=== PATIENT | female | born 1965 | race Caucasian/White ===

== ENCOUNTER → 2020-03-05 14:10 | Outpatient (CLI) | payer OTHER, SELFPAY | PROVIDERS: Visit Provider Physician Assistant | DX: N30.01 Acute cystitis with hematuria (principal) | CPT/HCPCS: 87077; 87086; 87147; 87186 ==

== ENCOUNTER 2020-04-30 22:29 | Emergency (ER) | payer OTHER, MEDICAID, SELFPAY ==
[2020-04-30 22:40] VITALS: BP 140/79; PULSE 107; RESP 17; TEMP 37.1; O2SAT 95; BMI 23.6
[2020-04-30 23:03] LABS: RBC Urine 0-1/HPF (0-5/HPF); WBC Urine 10-30/HPF (0-5/HPF)
[2020-04-30 23:04] LABS: Bacteria Urine Moderate (10-30); Culture Indicated Urine Specimen Cultured; Squamous Epithelial Cell Urine 0-1 /HPF (0-5/HPF)
--- NOTE | 2020-05-01 00:09 | ED.FEMALEGU ---
HPI - Female Genitourinary General Chief complaint: Urogenital-Female Stated complaint: Severe UTI Time Seen by Provider: 04/30/20 23:40 Source: patient Mode of arrival: Ambulatory Limitations: no limitations History of Present Illness HPI Narrative: Otherwise healthy 54-year-old woman who presents with dysuria for 12 hours growing more intense and now beginning to notice mild hematuria. No fevers, no flank pain, no belly pain, slightly decreased appetite and general malaise. She does note that she has recently established a new relationship and her partner lives out of town. This is her 2nd UTI in about 6 weeks corresponding with weekends spent with her new partner. She describes no vaginal discharge or odor. Related Data Previous Rx's Medication Instructions Recorded valacyclovir 500 mg tablet 500 mg PO BID 3 Days #6 tab 03/05/20 sulfamethoxazole-trimethoprim 1 tab PO BID #10 tab 05/01/20 Allergies Allergy/AdvReac Type Severity Reaction Status Date / Time No Known Drug Allergies Allergy Verified 03/05/20 14:09 Review of Systems Review of Systems Narrative: Pertinent positive and negative findings as per HPI Remainder of review of systems is otherwise unremarkable for Constitutional: Fevers, chills, weakness ENT: No sore throat, neck pain, ear pain CV: Chest pain, palpitations, dyspnea on exertion Respiratory: Cough, wheeze, dyspnea GI: Nausea, vomiting, diarrhea, change in bowel habits, black or bloody stools Patient History Medical History UTI (urinary tract infection) (Acute) alcohol intake frequency: 0-2 drinks per day Substance Use Type: does not use Exam Narrative Exam Narrative: General: Alert appropriate in no acute distress Respiratory: Able to speak in full sentences, no obvious respiratory distress Skin: No obvious rashes, warm and dry Abdomen: No suprapubic pain, no flank tenderness Neurologic: Grossly intact no obvious asymmetries or abnormalities Psych, appropriate insight and affect, cooperative Initial Vital Signs Initial Vital Signs: Vital Signs Temperature 98.7 F 04/30/20 22:40 Pulse Rate 107 H 04/30/20 22:40 Respiratory Rate 17 04/30/20 22:40 Blood Pressure 140/79 04/30/20 22:40 Pulse Oximetry 95 04/30/20 22:40 Course Orders Ordered: ED Orders 04/30/20 22:45 Urine Culture Stat Urine Microscopic Stat Discontinued Medications Trimethoprim/Sulfamethoxazole (Bactrim Ds) 1 tab PO NOW ONE Stop: 05/01/20 00:16 Last Admin: 05/01/20 00:41 Dose: 1 tab Documented by: FATUMA Vital Signs Vital signs: Vital Signs - 8 hr 04/30/20 22:40 05/01/20 00:39 Temperature 98.7 F 98.2 F Pulse Rate 107 H 92 H Respiratory Rate 17 18 Blood Pressure 140/79 Blood Pressure [Left Arm] 123/67 Pulse Oximetry 95 98 MDM - Female Genitourinary Medical Records Attestation: I reviewed the patient's medical records. Lab Data Attestation: I reviewed the patient's lab results. Lab results narrative: Urine Culture Final 03/07/20 Organism 1 Staphylococcus saprophyticus Springer Count >100,000 CFU/ml Sapro comment: Routine testing of Staphylococcus saprophyticus is NOT advised; infections respond to concentrations achieved in urine of antimicrobial agents commonly used to treat acute, uncomplicated urinary tract infections (eg, nitrofurantoin, trimethoprim/sulfamethoxazole, or fluoroquinolone). Labs: Lab Results 04/30/20 Range/Units 22:45 Urine RBC 0-1/hpf (0-5/HPF) Urine WBC 10-30/hpf H (0-5/HPF) Ur Squamous Epith Cells 0-1 /hpf (0-5/HPF) Urine Bacteria Moderate (10-30) H (None) Ur Culture Indicated? Specimen cultured Urine Dip Bedside Urine Glucose Negative Bedside Urine Bilirubin - Negative Bedside Urine Ketone - Negative Urine Specific Welcome 1.010 Bedside Urine Occult Blood +++ Bedside Urine pH 6.0 Bedside Urine Protein +/- 15 Bedside Urine Urobilinogen - Negative Bedside Urine Nitrite + Positive Bedside Urine Leukocytes +++ [address] [facility] Narrative Medical decision making narrative: 54-year-old woman with 12 hours of increasing dysuria hematuria. She no general malaise by the end of that day and a slight decrease in appetite but does not report fevers flank pain or other constitutional symptoms. She does note that she does have a new partner who was recently in town. Apparently he lives out of town and her most recent bladder infection in February was also associated with increased sexual activity. In February her urine showed staphylococci saprophyticus. Urine today is consistent with a repeat bladder infection. Will treat with 5 days of Septra twice a day. If she continues to have bladder infections after visits with her new partner suggested that she discuss prophylactic treatment with her primary care physician. She is safe for home discharge Discharge Plan Departure Patient Disposition: Home Clinical Impression: UTI (urinary tract infection) Qualifiers: Urinary tract infection type: acute cystitis Hematuria presence: with hematuria Qualified Code(s): N30.01 - Acute cystitis with hematuria Discharge Date/Time: 05/01/20 00:46 Instructions: DI for Urinary Tract Infection (UTI) Activity Restrictions/Additional Instructions: Thank you for coming in today. Based on the bacteria that grew with a bladder infection that you had in February, I am going to recommend that you take Bactrim twice a day for the next 5 days. 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 If you do continue to have recurrent bladder infections based on periodic sexual activity, to talk to your primary care physician about prophylactic options to avoid developing full bladder infection. If you notice fevers, flank pain, increasing abdominal pain, worsening symptoms overall, please return to the emergency room and I am happy to re-evaluate Prescriptions: New sulfamethoxazole-trimethoprim 800-160 mg tablet 1 tab PO BID Qty: 10 RF: 0 No Action valacyclovir [Valtrex] 500 mg tablet 500 mg PO BID 3 Days Qty: 6 RF: 1 Referrals: Debora Snyder ARNP [Primary Care Provider] -
[2020-05-01 00:39] VITALS: BP 123/67; PULSE 92; RESP 18; TEMP 36.8; O2SAT 98
[2020-05-01] MEDS: TRIMETH/SULFA 160/800 (DS) TABLET 1 TAB PO (00:41)
== END 2020-05-01 00:46 | disposition home or self-care (01) ==
PROVIDERS: Emergency Provider Emergency Medicine; PCP Internal Medicine
DX: N30.01 Acute cystitis with hematuria (principal)
CPT/HCPCS: 81003; 81015; 87077; 87086; 99283

== ENCOUNTER → 2020-05-11 10:38 | Outpatient (CLI) | payer OTHER, MEDICAID, SELFPAY ==
--- NOTE | 2020-05-11 | DI.MG.S_ITS ---
BILATERAL DIGITAL SCREENING MAMMOGRAM 3D/2D WITH CAD: 05/11/2020 CLINICAL: Routine screening. Family history of breast cancer. Comparison is made to exams dated: 02/19/2018 mammogram, 10/24/2013 mammogram, 11/15/2011 mammogram, 09/06/2007 mammogram, and 01/16/2006 mammogram - [facility]. The tissue of both breasts is heterogeneously dense. This may lower the sensitivity of mammography. Current study was also evaluated with a Computer Aided Detection (CAD) system. No significant masses, calcifications, or other findings are seen in either breast. There has been no significant interval change. IMPRESSION: NEGATIVE There is no mammographic evidence of malignancy. A 1 year screening mammogram is recommended. This exam was interpreted at Station ID: [id number]. NOTE: For mammograms, a report in lay terms will be sent to the patient. Approximately 15% of breast malignancies will not be visualized mammographically. In the management of a palpable breast mass, a negative mammogram must not discourage biopsy of a clinically suspicious lesion. Electronically Signed By: Zaid workman/adela:05/11/2020 12:06:44 letter sent: Normal Exam ACR BI-RADS Category 1: Negative 3341F
== END ==
PROVIDERS: PCP Internal Medicine; Referring Provider Internal Medicine; Visit Provider Internal Medicine
DX: Z12.31 Encounter for screening mammogram for malignant neoplasm of breast (principal); Z80.3 Family history of malignant neoplasm of breast
CPT/HCPCS: 77063; 77067

== ENCOUNTER → 2020-08-16 15:38 | Outpatient (CLI) | payer OTHER, MEDICAID, SELFPAY ==
[2020-08-17 19:00] LABS: COVID19 Sendout Not Detected (Not Detected)
== END ==
PROVIDERS: PCP Internal Medicine; Visit Provider Physician Assistant
DX: Z11.59 Encounter for screening for other viral diseases (principal)
CPT/HCPCS: 87635

== ENCOUNTER → 2020-09-11 16:40 | Outpatient (CLI) | payer OTHER, MEDICAID, SELFPAY | PROVIDERS: PCP Internal Medicine; Visit Provider Physician Assistant | DX: N30.01 Acute cystitis with hematuria (principal) | CPT/HCPCS: 87086 ==

== ENCOUNTER → 2020-09-14 10:52 | Outpatient (CLI) | payer OTHER, MEDICAID, SELFPAY ==
[2020-09-15 22:42] LABS: COVID19 Sendout Not Detected (Not Detect)
== END ==
PROVIDERS: PCP Internal Medicine; Visit Provider Physician Assistant
DX: Z20.828 Contact with and (suspected) exposure to other viral communicable diseases (principal)
CPT/HCPCS: 87635

== ENCOUNTER 2020-09-17 12:01 | Day surgery (SDC) | payer OTHER, MEDICAID, SELFPAY ==
[2020-09-17] VITALS (8 sets, daily range): BP systolic 96–112; BP diastolic 55–66; PULSE 64–97; RESP 12–19; TEMP 36.6–37.1; O2SAT 97–100; BMI 22.4
--- NOTE | 2020-09-17 | PATH_ITS ---
[facility] Accession Number: [id number] . 01 Material submitted: . colon - SIGMOID POLYP 2 MM . 01 Clinical history: . SDC . 02 Diagnosis: Sigmoid Colon Polyp, 2 mm, Biopsy: Colonic mucosa with prominent benign lymphoid aggregate. Negative for serrated lesion, dysplasia or malignancy. Additional step sections examined. [facility]V 09/21/2020 1247 Local . 02 Electronically signed: . Ke Linares MD, PhD, Pathologist NPI- [id number] . 01 Gross description: . The specimen is received in formalin, labeled sigmoid polyp and consists of a 0.7 x 0.5 x 0.2 cm wilcox-pink fragment of soft tissue, which is entirely submitted in cassette A1. ([id number]) /[facility] 09/18/2020 1704 Local . 02 Pathologist provided ICD-10: K63.5 . 02 CPT . 470734 Performed at: 01 [facility] [address], [place], [place] [id number] MD Alfred Rehman MD Phone: [phone] Performed at: 02 [facility] [address] [place], [place] [id number] MD Tara Huggins MD Phone: [phone]
[2020-09-17] MEDS: LACTATED RINGERS 1,000 ML 42 ML IV (12:26)
--- NOTE | 2020-09-17 12:31 | PM.HP.1 ---
History of Present Illness History of Present Illness Date Patient Seen: 09/17/20 Chief complaint: SDC Narrative: 55 year old female comes in today for consideration of a screening colonoscopy. She has never had a colonoscopy. She does have a family history of colon polyps in her brother. Fell on her hip last week and had some rectal bleeding, bright red. Also had some bright red bleeding last night with her prep. Otherwise, no history of hematochezia or known history of hemorrhoids. She did have a vaginal delivery with episiotomy and has some extra tissue near her rectum that she seemed was due to her APC item use scar. Otherwise, no lower GI symptoms suggesting disease such as change in bowel habits, abdominal pain or anemia. Overall health issues have been stable, including no major cardiac events for at least 6 weeks. 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 Less than 1 alcoholic drink per day. Never smoker. Patient History Medical History (Updated 09/17/20 @ 11:38 by Fernanda Swenson RN) Depression (Acute) UTI (urinary tract infection) (Acute) Family & Social History Tobacco & Substance use: Smoking Status Never smoker alcohol intake frequency 0-2 drinks per day Substance Use Type does not use Meds Home Medications and Allergies Home Medications Medication Instructions Recorded Confirmed Type valacyclovir [Valtrex] 500 mg PO DAILY 09/17/20 09/17/20 History Allergies Allergy/AdvReac Type Severity Reaction Status Date / Time No Known Drug Allergies Allergy Verified 09/17/20 12:40 Review of Systems Review of Systems ROS: Yes All systems reviewed with the patient and are negative except as otherwise documented Exam Narrative Exam Narrative: GENERAL: Alert and oriented, appearing stated age and in no acute distress. HEENT: Head normocephalic/atraumatic. Pupils equal, round, and reactive to light and accomodation. Extraocular muscles intact. Tympanic membranes clear. Nasal mucosa moist, septum midline. Oral mucosa moist, no lesions. Neck soft and supple, no lymphadenopathy. LUNGS: Clear to ausculation bilaterally, no wheezes, rhonchi or rales. CV: Normal S1 and S2 with regular rate and rhythm, no audible murmurs, rubs or gallops. ABDOMEN: Soft, non-tender, non-distended, no organomegaly. Positive bowel sounds. EXTREMITIES: No clubbing, cyanosis, or edema. NEURO: Cranial nerves II through XII grossly intact, no focal deficits. PSYCH: Alert and oriented x 3. SKIN: No concerning lesions. Assessment & Plan Assessment & Plan narrative: 1. Family history of colon polyps 2. Hematochezia 3. Screening for colon cancer Plan for colonoscopy. The nature and character of the procedure as well as anticipated results were discussed. The possibility of not completing the procedure was also discussed. Possible complications including aspiration pneumonia, bleeding, perforation and reaction to medications either for sedation or preparation and missed lesions were discussed. Questions were answered and proceeding to the colonoscopy was elected. Informed consent signed. I sincerely appreciate the referral allowing me to participate in this patient's care. Please contact me with any questions or concerns.
--- NOTE | 2020-09-17 12:36 | P.OP.ENDO_ITS ---
Operative Date/Time/Diagnoses Date of procedure: 09/17/20 Procedure Notes SCOAP/Timeout: 1:11 p.m. Procedure in detail: ENDOSCOPIST: Lesli Barahona MD Sedation RN: Yordan Camacho RN Sedation start time: 1:12 p.m. Sedation end time: 1:45 p.m. PROCEDURE: Colonoscopy with biopsy, cold INDICATIONS: 1. Family history of colon cancer 2. Hematochezia 3. Screening for colon cancer MEDICATION: Levsin 0.125 mg sublingual, incremental doses of Versed and fentanyl until appropriate level sedation achieved. ASA CLASS: 1 CECAL WITHDRAWAL TIME: 9 minutes COMPLICATIONS: None. EXTENT OF PROCEDURE: Cecum. QUALITY OF PREP: Good with portions of liquid stool. PROCEDURE: Prior to insertion of the colonoscope, a digital rectal examination was accomplished with circumferential palpation of the distal rectal mucosa without significant findings being noted. The high-definition pediatric colonoscope was passed into the rectum in the usual fashion and advanced over to the cecum without difficulty. The ileocecal valve, appendiceal stoma, and medial wall all could be inspected and no abnormalities were seen. ASCENDING COLON: As the colonoscope was withdrawn, care was taken to expose and inspect the haustral folds and minor diverticulosis seen, noninflamed. HEPATIC FLEXURE: Minor diverticulosis, otherwise, normal, no polyps, or other abnormalities. TRANSVERSE COLON: Minor diverticulosis, otherwise, normal, no polyps, or other abnormalities. DESCENDING COLON: Minor diverticulosis, otherwise, normal, no polyps, or other abnormalities. SIGMOID COLON: 2 mm polyp removed with cold biopsy forceps, excellent hemostasis. Otherwise, minor diverticulosis and no other abnormalities. RECTUM: Normal. J maneuver was produced. There was no significant perianal disease. The J maneuver was broken. The remainder of the rectum was inspected and there was minor, nonthrombosed external hemorrhoid disease. The scope was withdrawn. IMPRESSION: 1. Sigmoid polyp x1, 2 mm, removed with cold biopsy forceps 2. Pancolonic diverticulosis, mild 3. External hemorrhoids, nonthrombosed PLAN: 1. Follow-up in clinic status post pathology results. The possibility of a missed lesion including a malignancy has been discussed wi th the patient previously. Potential alarm symptoms have been discussed and should be reported immediately.
[2020-09-17] MEDS: HYOSCYAMINE 0.125 MG TABLET PO (12:55)
[2020-09-17] MEDS: MIDAZOLAM 5 MG/5 ML VIAL IV (13:12)
[2020-09-17] MEDS: fentaNYL 250 MCG/5 ML INJ IV (13:12)
[2020-09-17] MEDS: ONDANSETRON 4 MG/2 ML INJ IV (13:12)
== END 2020-09-17 14:48 | disposition home or self-care (01) ==
PROVIDERS: PCP Internal Medicine; Referring Provider Student in an Organized Health Care Education/Training Program; Visit Provider Student in an Organized Health Care Education/Training Program
PROC: 0DJD8ZZ Inspection of Lower Intestinal Tract, Via Natural or Artificial Opening Endoscopic (ICD-10-PCS; CPT 45378; principal; 2020-09-17 13:00)
DX: K92.1 Melena (principal); K57.30 Diverticulosis of large intestine without perforation or abscess without bleeding; K64.4 Residual hemorrhoidal skin tags; K63.5 Polyp of colon
CPT/HCPCS: 45380; J2250; J2405; J3010

== ENCOUNTER → 2021-10-18 09:31 | Outpatient (CLI) | payer OTHER, SELFPAY ==
[2021-10-18 10:11] LABS: Add Manual Diff / Slide Review NO; Basophils Absolute Auto 0 /uL (0-100); Basophils Percent Auto 0.4 % (0-2); Eosinophils Absolute Auto 0 /uL (0-450); Eosinophils Percent Auto 1.2 % (2-4); Hematocrit 39.9 % (36-46); Hemoglobin 13.7 g/dL (12.0-16.0); Lymphocytes Absolute Auto 1200 /uL (1100-4500); Lymphocytes Percent Auto 30.4 % (25-40); Mean Corpuscular HGB Conc 34.4 % (30-36); Mean Corpuscular Volume 90.2 fL (80-100); Monocytes Absolute Auto 300 /uL (0-900); Monocytes Percent Auto 8.2 % (3-14); Neutrophils Absolute Auto 2400 /uL (1500-7000); Neutrophils Percent Auto 59.8 % (50-75); Platelet Count 190 X10^3/uL (150-400); Red Blood Cell Count 4.42 X10^6/uL (4.0-5.2); Red Cell Distribution Width 12.7 % (11.6-14.8)
[2021-10-18 10:20] LABS: Alanine Aminotransferase 22 IU/L (<35); Albumin 4.4 g/dL (3.5-5.0); Albumin Globulin Ratio 1.6 (1.0-2.8); Alkaline Phosphatase 37 U/L (38-126); Aspartate Aminotransferase 25 IU/L (14-36); BUN Creatinine Ratio 21.9 (6-22); Bilirubin Total 0.5 mg/dL (0.2-1.3); Blood Urea Nitrogen 16 mg/dL (7-17); Calcium 9.2 mg/dL (8.4-10.2); Carbon Dioxide 28 mmol/L (22-32); Chloride 103 mmol/L (98-107); Cholesterol 164 mg/dL (140-199); Estimated Glomerular Filt Rate > 60.0 mL/min (>60); Globulin 2.7 g/dL (1.7-4.1); Glucose 113 mg/dL (70-100); HDL Cholesterol 57 mg/dL (40-60); HEMOLYSIS < 15 (0-50); LDL Cholesterol Calculated 98 mg/dL (<100); Potassium 4.5 mmol/L (3.4-5.1); Sodium 140 mmol/L (137-145); Total Protein 7.1 g/dL (6.3-8.2); Triglycerides 46 mg/dL (35-150)
[2021-10-18 10:54] LABS: Thyroid Stimulating Hormone 1.43 uIU/mL (0.47-4.68)
[2021-10-18 11:12] LABS: Hep C Virus Ab w/Reflex Quant NEGATIVE s/c (NEGATIVE)
== END ==
PROVIDERS: PCP Internal Medicine; Referring Provider Internal Medicine; Visit Provider Internal Medicine
DX: Z13.0 Encounter for screening for diseases of the blood and blood-forming organs and certain disorders involving the immune mechanism (principal); Z13.6 Encounter for screening for cardiovascular disorders; Z11.59 Encounter for screening for other viral diseases; Z13.220 Encounter for screening for lipoid disorders; Z13.29 Encounter for screening for other suspected endocrine disorder
CPT/HCPCS: 36415; 80053; 80061; 83036; 84443; 85025; 86803

== ENCOUNTER → 2022-01-03 15:52 | Outpatient (CLI) | payer OTHER, SELFPAY ==
--- NOTE | 2022-01-03 | DI.MG.S_ITS ---
BILATERAL DIGITAL SCREENING MAMMOGRAM 3D/2D WITH CAD: 01/03/2022 CLINICAL: Routine screening. Family history of breast cancer. Comparison is made to exams dated: 05/11/2020 mammogram, 02/19/2018 mammogram, and 10/24/2013 mammogram - [facility]. The tissue of both breasts is heterogeneously dense. This may lower the sensitivity of mammography. Current study was also evaluated with a Computer Aided Detection (CAD) system. No significant masses, calcifications, or other findings are seen in either breast. There has been no significant interval change. IMPRESSION: NEGATIVE There is no mammographic evidence of malignancy. A 1 year screening mammogram is recommended. This exam was interpreted at Station ID: [id number]. NOTE: For mammograms, a report in lay terms will be sent to the patient. Approximately 15% of breast malignancies will not be visualized mammographically. In the management of a palpable breast mass, a negative mammogram must not discourage biopsy of a clinically suspicious lesion. Electronically Signed By: Parmjit Slater M.D., jr/adela:01/06/2022 08:36:49 letter sent: Normal Exam ACR BI-RADS Category 1: Negative 3341F
== END ==
PROVIDERS: PCP Internal Medicine; Referring Provider Internal Medicine; Visit Provider Internal Medicine
DX: Z12.31 Encounter for screening mammogram for malignant neoplasm of breast (principal); Z80.3 Family history of malignant neoplasm of breast
CPT/HCPCS: 77063; 77067

== ENCOUNTER → 2022-04-09 15:10 | Outpatient (CLI) | payer OTHER, SELFPAY ==
[2022-04-09 16:06] LABS: COVID19 -Nasal RAPID POSITIVE (Negative)
== END ==
PROVIDERS: PCP Internal Medicine; Visit Provider Nurse Practitioner Family
DX: U07.1 COVID-19 (principal)
CPT/HCPCS: 87635

== ENCOUNTER → 2025-11-11 10:35 | Outpatient (CLI) | payer BC, SELFPAY ==
--- NOTE | 2025-11-11 10:36 | DI.MG.S_ITS ---
MM screening mammo BI: 11/11/2025. BI-RADS: 1 CLINICAL: 60-year old female for bilateral screening mammogram. Tyrer-Cuzick lifetime risk of 10.1%. No personal or first-degree family history of breast cancer. PRIOR EXAMS 01/03/2022, 05/11/2020, 02/19/2018. MAMMOGRAPHY TECHNIQUE: 2D and 3D (tomosynthesis) digital mammographic views obtained, with additional images as needed for full coverage. Current study was also evaluated with a Computer Aided Detection (CAD) system. DENSITY C. The breasts are heterogeneously dense, which may obscure small masses. MAMMOGRAPHY FINDINGS Bilateral: No suspicious mass, asymmetry, microcalcification, or other abnormality seen. IMPRESSION: * No evidence of malignancy. RECOMMENDATIONS Bilateral * Annual screening mammography. OVERALL ASSESSMENT CATEGORY BI-RADS-1: Negative. The [employer] recommends annual screening mammography beginning at age 40 for women with average risk of breast cancer. ELECTRONICALLY SIGNED: Almas Tee M.D. on 11/13/2025 at 10:52:39 AM PT Interpreting Station ID: [id number]
== END ==
PROVIDERS: PCP Family Medicine; Referring Provider Family Medicine; Visit Provider Family Medicine
DX: Z12.31 Encounter for screening mammogram for malignant neoplasm of breast (principal); R92.333 Mammographic heterogeneous density, bilateral breasts
CPT/HCPCS: 77063; 77067